=== PATIENT | male | born 1990 | race Caucasian/White ===

== ENCOUNTER 2016-09-27 22:06 | Emergency (ER) | payer OTHER ==
[2016-09-27 22:55] LABS: BASO % 0.2 % (0.2-1.2); EOS # 0.4 10_X3_uL (0.0-0.5); EOS % 4.8 % (0.8-7.0); GRAN % 49.1 % (34.0-67.9); HEMATOCRIT 38.2 % (40-51); HEMOGLOBIN 13.7 g/dL (13.7-17.5); LYMPH # 3.3 10_X3_uL (1.3-3.6); MEAN CORPUSCULAR HEMOGLOBIN 28.3 pg (27.0-33.0); MEAN CORPUSCULAR HGB CONC 35.9 g/dL (32.0-36.0); MEAN CORPUSCULAR VOLUME 78.9 fL (79-92); MEAN PLATELET VOLUME 9.8 fl (7.5-11.5); MONO # 0.4 10_X3_uL (0.3-0.8); MONO % 4.9 % (5.3-12.2); PLATELET COUNT 193 x10_3/uL (163-337); RED BLOOD COUNT 4.84 x10_6/uL (4.6-6.1); RED CELL DISTRIBUTION WIDTH 13.1 % (11.6-14.4); WHITE BLOOD COUNT 8.1 x10_3/uL (4.2-9.1)
[2016-09-27 23:10] LABS: ALBUMIN 4.1 gm/dL (3.4-5.0); ALKALINE PHOSPHATASE 56 U/L (50-136); ALT/SGPT 21 U/L (7.53-40.17); AST/SGOT 29 U/L (6.66-35.34); BILIRUBIN,TOTAL 0.29 mg/dL (0.0-1.0); BLOOD UREA NITROGEN 13 mg/dL (7-18); CALCIUM 9.3 mg/dL (8.7-10.7); CARBON DIOXIDE 27 mmol/L (21-32); CREATININE 0.7 mg/dL (0.6-1.3); GLUCOSE,RANDOM 102 mg/dL (70-99); POTASSIUM 3.8 mmol/L (3.5-5.1); SODIUM 137 mmol/L (136-145); TOTAL PROTEIN 7.1 gm/dL (6.4-8.2)
== END 2016-09-28 00:18 | disposition home or self-care (01) ==
LOC: ER 22:06
PROVIDERS: Emergency Medicine
DX: K60.2 Anal fissure, unspecified (principal); K62.89 Other specified diseases of anus and rectum; K62.5 Hemorrhage of anus and rectum; R00.0 Tachycardia, unspecified; F11.21 Opioid dependence, in remission; F17.210 Nicotine dependence, cigarettes, uncomplicated; Z79.899 Other long term (current) drug therapy
CPT/HCPCS: 36415; 80053; 85025; 99283

== ENCOUNTER 2017-01-14 19:57 | Emergency (ER) | payer OTHER | END 2017-01-14 20:55 | disposition home or self-care (01) | LOC: ER 19:57 | DX: R42 Dizziness and giddiness (principal); R00.2 Palpitations; F32.9 Major depressive disorder, single episode, unspecified; Z86.19 Personal history of other infectious and parasitic diseases; F17.210 Nicotine dependence, cigarettes, uncomplicated; Z79.899 Other long term (current) drug therapy | CPT/HCPCS: 93005; 99283-25 ==